=== PATIENT | male | born 1995 | race Caucasian/White ===

== ENCOUNTER 2017-03-21 12:10 | Emergency (ER) | payer BC, OTHER ==
[~2017-03-21] VITALS: Ht 172.7 cm; Wt 135.4 kg
[2017-03-21 12:13] VITALS: BP 138/66; PULSE 82; RESP 14; TEMP 98.2; O2SAT 98
--- NOTE | 2017-03-21 13:10 | PD ---
HPI Chief Complaint: Laceration/Skin Injury Time Seen by Provider: 13:04 Travel History International Travel<30 days: No Contact w/Intl Traveler<30days: No Traveled to known affect area: No History of Present Illness HPI [id number] male presents for evaluation laceration to the left thumb. No sustained prior to arrival when he was breaking apart a porcelain sink and a jagged edge cut his finger. He now has a laceration to the dorsal aspect of the left thumb with mild pain, aching, worse with palpation. Denies any numbness, tingling, weakness. His last tetanus vaccination is unknown. He has no other complaints at this time. [facility] Social History Alcohol Use: Yes Tobacco Use: Yes Allergies-Medications (Allergen,Severity, Reaction): Coded Allergies: No Known Allergies (Unverified , 03/21/17) Reported Meds & Prescriptions Reported Meds & Active Scripts Active No Active Prescriptions or Reported Medications Review of Systems General / Constitutional: No: Fever Musculoskeletal: No: Limited ROM, Pain Skin: Positive Other (positive for pain, laceration.) Neurologic: No: Paresthesia Physical Exam Narrative GENERAL: Well-nourished male in no acute distress SKIN: Warm and dry. 1 cm laceration dorsal aspect left thumb. No bleeding. CARDIOVASCULAR: Regular rate and rhythm. No murmur appreciated. RESPIRATORY: No accessory muscle use. Clear to auscultation. Breath sounds equal bilaterally. MUSCULOSKELETAL: Skin as noted above. The patient maintains full sensation on the medial and lateral aspect of the left thumb. Capillary refill less than 2 seconds. Full range of motion maintained. Data Data Last Documented VS Vital Signs Date Time Temp Pulse Resp B/P (MAP) Pulse Ox O2 Delivery O2 Flow Rate FiO2 03/21/17 12:13 98.2 82 14 138/66 (90) 98 Orders Orders Finger ([id number]) (03/21/17 ) Tetanus/Diphtheria Tox Adult (Tetanus/Di (03/21/17 13:15) Lidocaine 1% Inj (Xylocaine 1% Inj) (03/21/17 13:15) Lidocaine 1% Inj (Xylocaine 1% Inj) (03/21/17 13:15) Lidocaine 1% Inj (Xylocaine 1% Inj) (03/21/17 13:11) Ed Discharge Order (03/21/17 13:28) Splint Or Brace Apply/Monitor (03/21/17 13:28) [facility] Medical Decision Making Medical Screen Exam Complete: Yes Emergency Medical Condition: Yes Medical Record Reviewed: Yes Differential Diagnosis Cutaneous laceration, retained foreign body, extensor tendon laceration, neurovascular injury Narrative Course Finger x-ray reveals no acute abnormalities. Tetanus status updated. The laceration was repaired with sutures, he verbally consented. [facility]. He is stable for discharge. Procedures Procedure Narrative LACERATION LOCATION: Left thumb LENGTH: 1 cm NUMBER OF STITCHES/CIRILO: For REPAIR: The area of the laceration was prepped with Betadine and sterilely draped. The laceration was infiltrated with 1% lidocaine. The wound was copiously irrigated and explored without evidence of foreign body, tendon injury or neurovascular injury. The wound was closed using 5-0 nylon simple interrupted. This was a single layer repair. A sterile dressing was applied. The patient was advised to keep the dressing clean and dry. Patient tolerated the procedure well. Diagnosis Primary Impression: Finger laceration Additional Instructions: Minimize use of left thumb to prevent wound dehiscence. Wash the wound gently with soap and water and apply antibiotic cream twice a day. Return in 10-14 days for suture removal. Med/Other Pt SpecificInfo: Wound Care Scripts No Active Prescriptions or Reported Meds Disposition: 01 DISCHARGE HOME Condition: Stable Scotty Dumont Mar 21, 2017 13:10
[2017-03-21] MEDS ORDERED: LIDOCAINE HCL 1% 20 ML VIAL ONE (13:11)
[2017-03-21] MEDS ORDERED: TETANUS/DIPHTHERIA TOXOID ADULT 0.5 ML VIAL IM ONE (13:15)
[2017-03-21] MEDS ORDERED: LIDOCAINE HCL 1% 20 ML VIAL INFIL ONE (13:15)
[2017-03-21] MEDS ORDERED: LIDOCAINE HCL 1% 30 ML VIAL INFIL ONE (13:15)
--- NOTE | 2017-03-21 13:26 | RADRPT ---
EXAM DATE/TIME: 03/21/2017 13:09 [place] COMPARISON: No previous studies available for comparison. INDICATIONS : Laceration to left 1st digit today, cut finger on porcelain sink. MEDICAL HISTORY : None. SURGICAL HISTORY : None. ENCOUNTER: Initial ACUITY: 1 day PAIN SCORE: 1/10 LOCATION: Left 1 st digit FINDINGS: Examination of the first digit of the left hand demonstrates no evidence of fracture or dislocation. No radiopaque foreign bodies are seen. The soft tissues are intact. CONCLUSION: No acute disease. Duran Torres MD on March 21, 2017 at 13:23 Board Certified Radiologist. This report was verified electronically.
== END 2017-03-21 14:02 | disposition home or self-care (01) ==
LOC: NEPK 12:10
DX: S61.012A Laceration without foreign body of left thumb without damage to nail, initial encounter (principal); W26.8XXA Contact with other sharp object(s), not elsewhere classified, initial encounter; Y93.89 Activity, other specified; Z23 Encounter for immunization
CPT/HCPCS: 12001; 73140; 90471; 90714